=== PATIENT | female | born 1985 | race Caucasian/White ===

== ENCOUNTER 2022-02-01 19:14 | Emergency (ER) | payer OTHER ==
[2022-02-01] MEDS ORDERED: ACETAMINOPHEN TAB 500 MG TAB PO STA (20:01)
[2022-02-01] MEDS ORDERED: DIPH,PERTUS(ACELL)TETVAC-LF 0.5 ML VIAL IM ONE (20:01)
[2022-02-01] MEDS ORDERED: IBUPROFEN 600 MG TAB PO STA (20:01)
--- NOTE | 2022-02-01 20:07 | ED ---
Lower Extremity Injury HPI - General Chief Complaint: Extremity Injury, Lower Stated Complaint: foot injury Time Seen by Provider: 02/01/22 19:36 Source: patient, RN notes reviewed Mode of arrival: ambulatory Limitations: no limitations - History of Present Illness Initial Comments: This is a pleasant 36-year-old female states she dropped an eyeglass screwdriver on the floor then inadvertently stepped on it with her right foot. Patient states she did not have any significant pain right away. In fact, She took a shower, went on about her day. However she states after. She is having some pain over the dorsum of the foot anterior to the ankle on the lateral side. Pain is exacerbated by. Exacerbated by palpation. Patient is able to ambulate without antalgia. Last tetanus is unknown. Patient did not take any medications prior to arrival. No other injuries. No headache, no fever or chills, no changes in vision or hearing, no sore throat or difficulty with speech, no neck pain, no chest pain or shortness of breath, no abdominal pain, no nausea or vomiting, no changes in urination or bowel movements, no numbness or tingling, no skin rashes or lesions. Past medical, surgical, social, and family history reviewed. - Related Data Previous Rx's Medication Instructions Recorded Acetaminophen Tab [Tylenol Tab] 500 mg PO Q6H PRN #24 tablet 02/01/22 Ciprofloxacin HCl [Cipro] 500 mg PO BID 3 Days #6 tab 02/01/22 Ibuprofen [Motrin] 600 mg PO Q8HR PRN #30 tab 02/01/22 Allergies Allergy/AdvReac Type Severity Reaction Status Date / Time amoxicillin Allergy Unknown Verified 02/01/22 19:33 Childhood Penicillins Allergy Unknown Verified 02/01/22 19:33 Childhood Review of Systems ROS Statement: Those systems with pertinent positive or pertinent negative responses have been documented in the HPI. ROS Other: All systems not noted in ROS Statement are negative. Past Medical History Past Medical History: No Reported History History of Any Multi-Drug Resistant Organisms: None Reported Past Surgical History: No Surgical Hx Reported Past Psychological History: No Psychological Hx Reported Smoking Status: Current every day smoker Past Alcohol Use History: None Reported Past Drug Use History: None Reported General Exam Limitations: no limitations Head exam: Present: atraumatic, normocephalic, normal inspection Eye exam: Present: normal appearance, EOMI Neck exam: Present: normal inspection, full ROM Respiratory exam: Present: normal lung sounds bilaterally. Absent: respiratory distress, wheezes, rales, rhonchi, stridor Cardiovascular Exam: Present: regular rate, normal rhythm, normal heart sounds. Absent: systolic murmur, diastolic murmur, rubs, gallop, clicks GI/Abdominal exam: Present: soft. Absent: tenderness Right Knee exam: Present: normal inspection, full ROM. Absent: tenderness Lower Leg exam: Present: normal inspection. Absent: tenderness, swelling Ankle exam: Present: normal inspection, full ROM. Absent: tenderness, swelling Foot/Toe exam: Present: full ROM (With pain), tenderness (Patient has tenderness to the lateral aspect of the foot overlying the anterior aspect of the ankle.), puncture wound (Tiny puncture wound noted overlying the calcaneus.). Absent: normal inspection, swelling, abrasion, laceration, ecchymosis, deformity, crepitus, dislocation, erythema, amputation, foreign body, tenderness at base of 5th metatarsal, nail avulsion, subungual hematoma Neurovascular tendon exam: Present: no vascular compromise. Absent: pulse deficit, abnormal cap refill, motor deficit, sensory deficit, tendon deficit, extremity cold to touch, pallor, abnormal 2-point discrimination, decreased fine/light touch, foot drop, peroneal nerve deficit Gait: antalgic Back exam: Present: normal inspection, full ROM Neurological exam: Present: alert, oriented X3, CN II-XII intact. Absent: motor sensory deficit Psychiatric exam: Present: normal affect, normal mood Skin exam: Present: warm, dry, normal color. Absent: rash Course Vital Signs 02/01/22 19:31 Temperature 98 F Pulse Rate 102 H Respiratory 20 Rate Blood Pressure 131/72 O2 Sat by Pulse 97 Oximetry Medical Decision Making - Medical Decision Making Patient has a tiny puncture wound plantar aspect of foot which is likely not problematic. No evidence of infectious process. No evidence of vascular injury. I suspect the patient has a soft tissue ligamentous type injury which occurred during the time she sustained a puncture wound. Patient had no pain initially but after. At rest now has pain to the lateral aspect of the foot just anterior to the ankle. Ankle x-rays ordered. TdAP ordered. Patient was told to return to the ER for any signs or symptoms worsen. Told to return immediately if any other problems arise. All questions answered. Treatment plan discussed. Patient in agreement Every effort has been made to ensure accuracy of this dictation. However, due to the limitations of electronic medical records and dictation devices, errors in charting still occur. No evidence of acute abnormality x-ray. We'll treat with Donny wrap. Distal neurovascular status intact pre-and post-application. Chemical Treatment Operator Dr. Schwartz - Radiology Data Radiology results: report reviewed, image reviewed Disposition Clinical Impression: Other sprain of right foot, initial encounter, Puncture wound of foot, right Disposition: HOME SELF-CARE Condition: Good Instructions (If sedation given, give patient instructions): Foot Sprain (ED), Puncture Wound (ED) Additional Instructions: Take antibiotics as directed. Soak the wound in warm soapy water for 10-15 minutes at a time 4 times daily. Keep covered with a Band-Aid. Cover with a thin layer of Neosporin or triple antibiotic ointment. Follow-up with your regular physician as directed. Return to the ER immediately if any symptoms worsen, new symptoms arise, or any other problems develop. Prescriptions: Ciprofloxacin HCl [Cipro] 500 mg PO BID 3 Days #6 tab Ibuprofen [Motrin] 600 mg PO Q8HR PRN #30 tab PRN Reason: Pain Acetaminophen Tab [Tylenol Tab] 500 mg PO Q6H PRN #24 tablet PRN Reason: Pain Is patient prescribed a controlled substance at d/c from ED?: No Referrals: None,Stated [Primary Care Provider] - 02/02/22 Time of Disposition: 20:51
[2022-02-01] MEDS ORDERED: IBUPROFEN 600 MG STARTER PACK 4 TAB BTL PO STA (20:48)
--- NOTE | 2022-02-01 20:52 | XR ---
EXAMINATION TYPE: XR foot complete RT DATE OF EXAM: 02/01/2022 8:28 PM INDICATION: Patient age:Female; 36 years old; Reason for study: Injury/sprain?puncture wound plantar aspect; PHH. COMPARISON: None TECHNIQUE: The right foot was examined in the AP, oblique, and lateral projections. FINDINGS: No evidence of any acute osseous pathology. No evidence of soft tissue swelling. Joints are preserve d. No radiopaque foreign body. IMPRESSION: 1. No evidence of acute fracture. 2. No radiopaque foreign body.
[2022-02-01 21:12] VITALS: BP 117/74; PULSE 79; RESP 16; TEMP 98.5
== END 2022-02-01 21:11 | disposition home or self-care (01) ==
LOC: EC 19:14
DX: S93.691A Other sprain of right foot, initial encounter (principal); S91.331A Puncture wound without foreign body, right foot, initial encounter; F17.200 Nicotine dependence, unspecified, uncomplicated; Z88.0 Allergy status to penicillin; Z23 Encounter for immunization; W22.8XXA Striking against or struck by other objects, initial encounter
CPT/HCPCS: 90471; 90715; 99283

== ENCOUNTER 2024-03-02 11:04 | Emergency (ER) | payer OTHER, BC ==
[2024-03-02 11:12] VITALS: TEMP 99.1
[2024-03-02] MEDS: IBUPROFEN 600 MG TAB PO STA (11:47)
[2024-03-02] MEDS: ACETAMINOPHEN TAB 325 MG TAB PO STA (11:48)
--- NOTE | 2024-03-02 12:30 | XR ---
EXAMINATION TYPE: XR shoulder complete LT DATE OF EXAM: 03/02/2024 11:56 AM COMPARISON: None CLINICAL INDICATION: Female, 38 years old with history of pain with movement; [facility] TECHNIQUE: XR shoulder complete LT; examined in AP, internally rotated and scapular Y projections. FINDINGS: No evidence of acute osseous pathology, joint dislocation, or soft tissue swelling. The remaining po rtions of the visualized chest are unremarkable. Mild degeneration changes of the acromion and dista l clavicle. IMPRESSION: 1. No acute osseous pathology. 2. Mild shoulder osteoarthrosis. [facility], , 03/02/2024 12:28 PM
--- NOTE | 2024-03-02 12:31 | ED ---
General Adult HPI - General Chief complaint: Extremity Injury, Upper Stated complaint: L Shoulder Pain Time Seen by Provider: 03/02/24 11:20 Source: patient Mode of arrival: ambulatory Limitations: no limitations - History of Present Illness Initial comments: 38-year-old female presenting with chief complaint of left shoulder pain. Pain has been ongoing for the last 2 to 3 months. She states that she has been" meaning to get it checked out". States that she mainly has pain when she tries to lift her arm above her head or reach across to touch her right shoulder. Pain is worse when she is using it to carrying groceries and she has difficulty sleeping on that left side. No acute injury or trauma. No numbness tingling or weakness. - Related Data Previous Rx's Medication Instructions Recorded Acetaminophen Tab [Tylenol Tab] 500 mg PO Q6H PRN #24 tablet 02/01/22 Ciprofloxacin HCl [Cipro] 500 mg PO BID 3 Days #6 tab 02/01/22 Ibuprofen [Motrin] 600 mg PO Q8HR PRN #30 tab 02/01/22 Allergies Allergy/AdvReac Type Severity Reaction Status Date / Time amoxicillin Allergy Unknown Verified 03/02/24 11:12 Childhood Penicillins Allergy Unknown Verified 03/02/24 11:12 Childhood Review of Systems ROS Statement: Those systems with pertinent positive or pertinent negative responses have been documented in the HPI. ROS Other: All systems not noted in ROS Statement are negative. Past Medical History Past Medical History: No Reported History History of Any Multi-Drug Resistant Organisms: None Reported Past Surgical History: No Surgical Hx Reported Past Psychological History: No Psychological Hx Reported Smoking Status: Current every day smoker Past Alcohol Use History: None Reported Past Drug Use History: None Reported General Exam Limitations: no limitations General appearance: alert, in no apparent distress Head exam: Present: atraumatic, normocephalic, normal inspection Eye exam: Present: normal appearance, EOMI Neck exam: Present: normal inspection. Absent: meningismus Respiratory exam: Absent: respiratory distress Cardiovascular Exam: Present: regular rate Left Shoulder Exam: Present: normal inspection, full ROM (Pain with range of motion), tenderness. Absent: deformity, erythema Vascular: Absent: vascular compromise Neurological exam: Present: alert, oriented X3 Psychiatric exam: Present: normal affect, normal mood Skin exam: Present: warm, dry Course Vital Signs 03/02/24 03/02/24 11:06 13:01 Temperature 99.1 F Pulse Rate 87 81 Respiratory 16 18 Rate Blood Pressure 123/75 133/83 O2 Sat by Pulse 100 98 Oximetry Medical Decision Making - Medical Decision Making Was pt. sent in by a medical professional or institution (, LALITHA, CORNETIST, urgent care, hospital, or long-term...) When possible be specific @ -[No] Did you speak to anyone other than the patient for history (EMS, parent, family, police, friend...)? What history was obtained from this source @ -[No] Did you review nursing and triage notes (agree or disagree)? Why? @ -[I reviewed and agree with nursing and triage notes] Were old charts reviewed (outside hosp., previous admission, EMS record, old EKG, old radiological studies, urgent care reports/EKG's, long-term records)? Report findings @ -[No old charts were reviewed] Differential Diagnosis (chest pain, altered mental status, abdominal pain women, abdominal pain men, vaginal bleeding, weakness, fever, dyspnea, syncope, headache, dizziness, GI bleed, back pain, seizure, CVA, palpatations, mental health, musculoskeletal)? @ -Differential Musculoskeletal Muscular strain, contusion, ligament sprain, fracture, arthritis, septic arthritis, bursitis, cellulitis, muscle spasm, nerve compression, DVT, arterial occlusion, herpes zoster, electrolyte abnormality, tumor.... This is not meant to be in all inclusive list EKG interpreted by me (3pts min.). @ -[As above] X-rays interpreted by me (1pt min.). @ -X-ray shows no acute osseous pathology. Mild shoulder osteoarthrosis. CT interpreted by me (1pt min.). @ -None done U/S interpreted by me (1pt. min.). @ -None done What testing was considered but not performed or refused? (CT, X-rays, U/S, labs)? Why? @ -None What meds were considered but not given or refused? Why? @ -None Did you discuss the management of the patient with other professionals (professionals i.e. LALITHA Dacosta, CORNETIST, lab, RT, psych nurse, psychotherapist social worker, bolt sorter, teacher, workplace rehabilitation officer, counter caser)? Give summary @ -No Was smoking cessation discussed for >3mins.? @ -No Was critical care preformed (if so, how long)? @ -No Were there social determinants of health that impacted care today? How? (Homelessness, low income, unemployed, alcoholism, drug addiction, transportation, low edu. Level, literacy, decrease access to med. care, fci, rehab)? @ -No Was there de-escalation of care discussed even if they declined (Discuss DNR or withdrawal of care, Hospice)? DNR status @ -No What co-morbidities impacted this encounter? (DM, HTN, Smoking, COPD, CAD, Cancer, CVA, ARF, Chemo, Hep., AIDS, mental health diagnosis, sleep apnea, morbid obesity)? @ -None Was patient admitted / discharged? Hospital course, mention meds given and route, prescriptions, significant lab abnormalities, going to OR and other pertinent info. @ -38-year-old female presenting with chief complaint of left shoulder pain ongoing for the last 2 to 3 months. No injury. Neurovascularly intact. No acute osseous pathology on x-ray. Patient is educated on today's findings and referred to orthopedics for further workup. Discharged. Follow-up with PCP. Report back to ER with any new or worsening symptoms. Discussed return parameters and answered all questions. Patient conveyed verbal understanding and agreed to the plan. I discussed this case in detail with my attending Dr. Yanes Undiagnosed new problem with uncertain prognosis? @ -No Drug Therapy requiring intensive monitoring for toxicity (Heparin, Nitro, Insulin, Cardizem)? @ -No Were any procedures done? @ -No Diagnosis/symptom? @ -Shoulder pain Acute, or Chronic, or Acute on Chronic? @ -Acute Uncomplicated (without systemic symptoms) or Complicated (systemic symptoms)? @ -Uncomplicated Side effects of treatment? @ -No Exacerbation, Progression, or Severe Exacerbation? @ -No Poses a threat to life or bodily function? How? (Chest pain, [place], CA, pneumonia, PE, COPD, DKA, ARF, appy, cholecystitis, CVA, Diverticulitis, Homicidal, Suicidal, threat to staff... and all critical care pts) @ -No Disposition Clinical Impression: Shoulder pain Disposition: HOME SELF-CARE Condition: Good Instructions (If sedation given, give patient instructions): Shoulder Pain (ED) Additional Instructions: Follow-up with orthopedics. Report back to ER with any new or worsening symptoms. Take Motrin and Tylenol as needed for pain control. Is patient prescribed a controlled substance at d/c from ED?: No Referrals: None,Stated [Primary Care Provider] - 1-2 days Rickey Flores MD [STAFF PHYSICIAN] - 1-2 days Time of Disposition: 12:30
[2024-03-02 13:02] VITALS: BP 133/83; PULSE 81; RESP 18
== END 2024-03-02 13:05 | disposition home or self-care (01) ==
LOC: EC 11:04
DX: M25.512 Pain in left shoulder (principal); F17.200 Nicotine dependence, unspecified, uncomplicated; Z88.0 Allergy status to penicillin
CPT/HCPCS: 99283